=== PATIENT | male | born 1955 | race African-American/Black ===

== ENCOUNTER 2020-10-25 10:23 | Inpatient (IN) | payer MEDICARE, MEDICAID ==
[~2020-10-25] VITALS: Ht 176.5 cm; Wt 108.4 kg
[2020-10-25 11:46] LABS: BASOPHILS % 0.5 % (0.0-2.0); EOSINOPHILS % 0.9 % (0.0-5.0); HEMATOCRIT. 36.2 % (42.0-52.0); HEMOGLOBIN. 11.8 g/dL (14.0-18.0); MEAN CORPUSCULAR HEMOGLOBIN 31.8 pg (28.0-32.0); MEAN CORPUSCULAR VOLUME 97.7 fL (80.0-94.0); MONOCYTES % 8.7 % (2.0-8.0); NEUTROPHILS % 77.9 % (40.0-76.0); PLATELET 130 x1000/uL (130-400)
[2020-10-25 12:11] LABS: CHLORIDE 98 mEq/L (98-107)
[2020-10-25] MEDS ORDERED: ASPIRIN 81MG TABLET PO ONE (12:30)
[2020-10-25] MEDS ORDERED: FUROSEMIDE 40MG/4ML VIAL IV ONE (12:30)
[2020-10-25] MEDS ORDERED: CEFTRIAXONE 1 G PREMIX 50 ML IV ONE (12:30)
[2020-10-25] MEDS ORDERED: NITROGLYCERIN OINT 1GM/INCH UDPKT TD ONE (12:30)
[2020-10-25] MEDS ORDERED: AZITHROMYCIN 500 MG in DEXT 5% WATER 250 ML IV ONE (12:30)
[2020-10-25] MEDS ORDERED: DOXYCYCLINE HYCLATE 100 MG/VIAL IV ONE (13:30)
[2020-10-25] MEDS ORDERED: DOXYCYCLINE 100MG in DEXTROSE 5% WATER 100ML IV SCH (14:00)
[2020-10-25 14:14] LABS: CLARITY URINE CLEAR (CLEAR); COLOR URINE YELLOW (YELLOW); KETONES URINE NEGATIVE (NEGATIVE); LEUKOCYTE ESTERASE URINE NEGATIVE (NEGATIVE); NITRITE URINE NEGATIVE (NEGATIVE); OCCULT BLOOD URINE NEGATIVE (NEGATIVE); PROTEIN URINE NEGATIVE (NEGATIVE); SPECIFIC GRAVITY URINE 1.011 (1.005-1.030)
[2020-10-25 15:20] VITALS: BP_SYST 124; BP_SYST 135; BP_DIAS 104
[2020-10-25] MEDS ORDERED: FURO-151 PO (16:03)
[2020-10-25] MEDS ORDERED: POTA10CA42 PO (16:03)
[2020-10-25] MEDS ORDERED: APIX5TAB PO (16:03)
[2020-10-25] MEDS ORDERED: ACETAMINOPHEN 325MG TABLET PO PRN ×2 (16:45)
[2020-10-25] MEDS ORDERED: LORAZEPAM 0.5MG TABLET PO PRN (16:45)
[2020-10-25] MEDS ORDERED: CLONIDINE 0.1MG TABLET PO PRN (16:45)
[2020-10-25] MEDS ORDERED: MAGNESIUM/ALUMINUM HYDROXIDE/SIMETHICONE 30ML UDC PO PRN (16:45)
[2020-10-25] MEDS ORDERED: ONDANSETRON HCL 4MG/2ML INJ IV PRN (16:45)
[2020-10-25] MEDS ORDERED: DIPHENHYDRAMINE 50MG/ML VIAL IV PRN (16:45)
[2020-10-25] MEDS ORDERED: GUAIFENESIN 200MG/10ML SUGAR FREE UDC PO PRN (16:45)
[2020-10-25] MEDS: FUROSEMIDE 40MG/4ML VIAL IVP SCH (17:11)
[2020-10-25] MEDS: APIXABAN 5 MG TABLET PO SCH (17:11)
[2020-10-25 20:00] VITALS: BP 145/97
[2020-10-25] MEDS ORDERED: ZOLPIDEM TARTRATE 5MG TABLET PO PRN (21:00)
[2020-10-25] MEDS ORDERED: CARVEDILOL 12.5MG TABLET PO SCH (21:00)
[2020-10-25] MEDS: ATORVASTATIN CALCIUM 40MG TABLET PO SCH (21:46)
[2020-10-25] MEDS: HYDRALAZINE HCL 25MG TABLET PO SCH (21:46)
[2020-10-25] MEDS: SODIUM CHLORIDE 0.9% INJ 3ML FLUSH IVF SCH (21:46)
[2020-10-26] VITALS: BP 122/80
[2020-10-26 04:00] VITALS: BP 114/86
[2020-10-26] MEDS: FUROSEMIDE 40MG/4ML VIAL IVP SCH ×2 (06:06→17:41)
[2020-10-26] MEDS: HYDRALAZINE HCL 25MG TABLET PO SCH ×3 (06:07→21:14)
[2020-10-26] MEDS: SODIUM CHLORIDE 0.9% INJ 3ML FLUSH IVF SCH ×3 (06:07→21:14)
[2020-10-26 08:00] VITALS: BP 106/80
[2020-10-26 08:32] LABS: CHLORIDE 96 mEq/L (98-107)
[2020-10-26] MEDS: CARVEDILOL 12.5MG TABLET PO SCH ×2 (09:00→21:14)
[2020-10-26] MEDS: APIXABAN 5 MG TABLET PO SCH ×2 (09:44→17:41)
[2020-10-26] MEDS: METOLAZONE 5MG TABLET PO SCH (09:44)
[2020-10-26] MEDS: POTASSIUM CHLORIDE 20MEQ TABLET SR PO SCH (09:44)
[2020-10-26] MEDS: ASPIRIN 81MG EC TABLET PO SCH (09:44)
[2020-10-26] MEDS: SPIRONOLACTONE 25MG TABLET PO SCH (09:45)
[2020-10-26] MEDS ORDERED: FUROSEMIDE 40MG/4ML VIAL IVP NR (11:45)
[2020-10-26 12:00] VITALS: BP 104/70
[2020-10-26 16:00] VITALS: BP 150/78
[2020-10-26 20:32] VITALS: BP 136/67
[2020-10-26] MEDS: ATORVASTATIN CALCIUM 40MG TABLET PO SCH (21:14)
[2020-10-27 00:28] VITALS: BP 122/64
[2020-10-27 04:00] VITALS: BP 118/63
[2020-10-27] MEDS: FUROSEMIDE 40MG/4ML VIAL IVP SCH ×2 (05:01→17:21)
[2020-10-27] MEDS: SODIUM CHLORIDE 0.9% INJ 3ML FLUSH IVF SCH ×3 (05:02→23:28)
[2020-10-27] MEDS: HYDRALAZINE HCL 25MG TABLET PO SCH ×3 (05:02→23:28)
[2020-10-27 08:30] VITALS: BP 117/62
[2020-10-27] MEDS: POTASSIUM CHLORIDE 20MEQ TABLET SR PO SCH (09:19)
[2020-10-27] MEDS: METOLAZONE 5MG TABLET PO SCH (09:19)
[2020-10-27] MEDS: CARVEDILOL 12.5MG TABLET PO SCH ×2 (09:20→23:27)
[2020-10-27] MEDS: SPIRONOLACTONE 25MG TABLET PO SCH (09:20)
[2020-10-27] MEDS: ASPIRIN 81MG EC TABLET PO SCH (09:20)
[2020-10-27] MEDS: APIXABAN 5 MG TABLET PO SCH ×2 (09:20→17:20)
[2020-10-27 12:16] VITALS: BP 98/44
[2020-10-27] MEDS ORDERED: POTASSIUM PHOS,M-BASIC-D-BASIC 20 MMOL in DEXT 5% WATER 243.3333 ML IV NR (15:00)
[2020-10-27] MEDS ORDERED: MAGNESIUM 4 G PREMIX 100 ML IV NR (15:00)
[2020-10-27 16:25] VITALS: BP 102/52
[2020-10-27 20:00] VITALS: BP 119/55
[2020-10-27] MEDS: ATORVASTATIN CALCIUM 40MG TABLET PO SCH (23:28)
[2020-10-28 04:00] VITALS: BP 94/65
[2020-10-28] MEDS: HYDRALAZINE HCL 25MG TABLET PO SCH (05:21)
[2020-10-28] MEDS: SODIUM CHLORIDE 0.9% INJ 3ML FLUSH IVF SCH (05:41)
[2020-10-28] MEDS: FUROSEMIDE 40MG/4ML VIAL IVP SCH (05:41)
[2020-10-29 14:08] LABS: NEISSERIA GONORRHOEAE NAA Negative (Negative)
== END 2020-10-28 12:53 | disposition left against medical advice (07) | DRG 194 ==
LOC: ER 10:23 → EDBEDREQTM 12:22 → EDBEDREQ 12:22 → EDBEDREQTM 12:29 → 7WST 13:32 → EDBEDREQTM 13:34 → EDBEDREQ 13:34 → ENRESERV 14:13 → 6WST 10-26 00:50
PROVIDERS: ADMIT Internal Medicine; ATTEND Internal Medicine
DX: I13.0 Hypertensive heart and chronic kidney disease with heart failure and stage 1 through stage 4 chronic kidney disease, or unspecified chronic kidney disease (principal); J96.01 Acute respiratory failure with hypoxia; I50.23 Acute on chronic systolic (congestive) heart failure; E66.9 Obesity, unspecified; F41.9 Anxiety disorder, unspecified; I48.92 Unspecified atrial flutter; N18.9 Chronic kidney disease, unspecified; E11.22 Type 2 diabetes mellitus with diabetic chronic kidney disease; E83.39 Other disorders of phosphorus metabolism; E83.42 Hypomagnesemia; I25.10 Atherosclerotic heart disease of native coronary artery without angina pectoris; I48.91 Unspecified atrial fibrillation; J44.9 Chronic obstructive pulmonary disease, unspecified; Z20.822 Contact with and (suspected) exposure to COVID-19; Z60.2 Problems related to living alone; N50.82 Scrotal pain; Z79.01 Long term (current) use of anticoagulants; Z79.899 Other long term (current) drug therapy; Z68.34 Body mass index [BMI] 34.0-34.9, adult; Z86.14 Personal history of Methicillin resistant Staphylococcus aureus infection; R60.1 Generalized edema
CPT/HCPCS: 36415; 71045; 76705; 76870; 80048; 80076; 81003; 83605; 83735; 83880; 84100; 84145; 84484; 85025; 87491; 87591; 93005; 93970; 93976; 99291; J0456; J0696; J1940; J3475; J3490; J7060; U0003; A4315